=== PATIENT | female | born 1990 | race Caucasian/White ===

== ENCOUNTER → 2018-02-12 13:36 | Outpatient (CLI) | payer OTHER, SELFPAY ==
--- NOTE | 2018-02-12 | DI.US.S_ITS ---
PROCEDURE: US ABDOMEN COMPLETE INDICATIONS: PERIUMBILICAL PAIN TECHNIQUE: Real-time scanning was performed of the abdominal and retroperitoneal organs, with image documentation. COMPARISON: None. FINDINGS: Liver: The liver is normal in size and demonstrates slightly increased echogenicity when compared to the right kidney. No focal liver lesions are evident. Gallbladder: 3 cm mobile gallstone otherwise gallbladder is normal. The surrounding gallbladder wall inflammation is evident. Biliary ducts: Intrahepatic bile ducts are non-dilated. Extrahepatic bile duct caliber measures 2.6 mm. Normal is 6-7 mm or less in diameter, or 10 mm or less post-cholecystectomy. Pancreas: Visualized portions of the pancreas are sonographically normal. Spleen: Spleen is normal in size and homogeneous in echotexture. Kidneys: Kidneys are normal in size and echotexture. Right kidney measures 11.8 cm long; left kidney measures 10 cm long. No hydronephrosis or nephrolithiasis. No solid masses. Aorta: Visualized aorta is normal in caliber at less than 3 cm. Iliacs: Proximal common iliac arteries are normal in caliber at less than 2.5 cm. IVC: Intrahepatic inferior vena cava is patent. Miscellaneous: No free abdominal fluid. IMPRESSION: 1. Cholelithiasis without acute cholecystitis. 2. Possible hepatic steatosis. Please correlate clinically. Dictated by: John ELIAS Interpreted: Gavin Pandey MD on 02/12/2018 at 14:27 Approved by: Gavin Pandey M.D. on 02/12/2018 at 17:24
== END ==
PROVIDERS: Visit Provider Nurse Practitioner Family
DX: K80.20 Calculus of gallbladder without cholecystitis without obstruction (principal); R10.33 Periumbilical pain
CPT/HCPCS: 76700

== ENCOUNTER → 2018-11-28 16:11 | Outpatient (CLI) | payer OTHER, SELFPAY ==
--- NOTE | 2018-11-28 | DI.US.S_ITS ---
PROCEDURE: US OB <= 14 WEEKS FETUS INDICATIONS: SIZE AND DATING OUTSIDE/PRIOR DATING DATA: Last menstrual period (LMP): Unknown. LMP-based estimated date of delivery (LOBITO): Unknown. First dating scan (date and location): 11/28/18. Estimated date of delivery (LOBITO) from first dating scan: 07/07/19. TECHNIQUE: Real-time scanning was performed of the fetus and maternal pelvic organs, with image documentation. Endovaginal scanning was also performed to better visualize the fetus and maternal ovaries. COMPARISON: None. FINDINGS: Embryo: Single living intrauterine fetus is seen with a crown-rump length measuring 1.9 cm, 8 weeks 3 days. heart rate measures 180 beats per minute Measurement variability in dating: +/- 4 weeks by LMP, +/- 7 days by mean sac diameter (use before 6 weeks gestation if crown-rump length not able to be measured), +/- 5 days by crown-rump length (up to 8 weeks 6 days gestation), +/- 7 days by crown-rump length (up to 13 weeks 6 days gestation). Maternal organs: Ovaries unremarkable except for a presumed right sided corpus luteum. Uterus demonstrates a possible septate appearance, with the gestation seen in the right uterus. Limited images through the kidneys demonstrate no hydronephrosis. IMPRESSION: Single living intrauterine fetus with a gestational age measuring 8 weeks and 3 days by today's ultrasound measurements corresponding to an LOBITO of 07/07/19. Dictated by: Marcelo Elias M.D. on 11/28/2018 at 16:50 Approved by: Marcelo Elias M.D. on 11/28/2018 at 16:53
== END ==
PROVIDERS: PCP Nurse Practitioner Family; Visit Provider Nurse Practitioner Family
DX: Z34.91 Encounter for supervision of normal pregnancy, unspecified, first trimester (principal); Z3A.08 8 weeks gestation of pregnancy
CPT/HCPCS: 76801

== ENCOUNTER → 2019-02-12 14:37 | Outpatient (CLI) | payer OTHER, SELFPAY ==
--- NOTE | 2019-02-12 | DI.US.S_ITS ---
PROCEDURE: US OB >= 14 WEEKS FETUS INDICATIONS: 20 WEEK ANATOMY OUTSIDE/PRIOR DATING DATA: Last menstrual period (LMP): Unknown. LMP-based estimated date of delivery (LOBITO): Unknown. First dating scan (date and location): 11/28/18. Estimated date of delivery (LOBITO) from first dating scan: 07/07/19. TECHNIQUE: Real-time scanning was performed of the fetus, with image documentation and biometric measurements. Endovaginal scanning: Not performed COMPARISON: [facility], OB <= 14 WEEKS FETUS, 11/28/2018, 16:22. FINDINGS: General: A single living intrauterine gestation is present. Presentation: Vertex. Placenta: Placental position is posterior, without previa. Amniotic fluid index: 19.1 cm, normal range is 5-24 cm. heart rate: 152 beats per minute. Maternal cervical canal: 3.4 cm long. Normal lower limit is 2.5 cm. biometrics: Biparietal diameter: 4.6 cm, 19 weeks 5 days Head circumference: 17.4 cm, 20 weeks zero days Abdominal circumference: 14.6 cm, 19 weeks 6 days Femur length: 3.1 cm, 19 weeks 3 days Estimated gestational age from initial scan: 19 weeks 2 days Composite gestational age from present scan: 19 weeks 5 days Estimated weight and percentile: 309 g, 71st percentile Measurement variability for biometric dating: +/- 7 days from 14 weeks to 15 weeks 6 days gestation, +/- 10 days from 16 weeks to 21 weeks 6 days gestation, +/- 2 weeks from 22 weeks to 27 weeks 6 days gestation, +/- 3 weeks for 28 weeks gestation or later. weight reference: 4500 g or EFW >90/95% is considered macrosomia or large for gestational age. EFW <10% is small for gestational age. EFW 5% or less is considered intra-uterine growth restriction. Anatomic survey: Neuro: Ventricles are non-dilated at less than 10 mm. Cisterna magna is normal at 3-11 mm. Cerebellum is normal in size and morphology. Nuchal skin fold: Normal at less than 6 mm between 14-21 weeks gestational age. Face: Nose and lips, facial profile are normal. Spine: No evidence for spina bifida. Heart: 4-chambered heart is present, with normal ventricular outflow tracts. Diaphragm: Diaphragm is intact. Stomach: Left-sided stomach is present. Kidneys: No hydronephrosis. Normal is less than 5 mm in 2nd trimester, less than 7 mm in 3rd trimester. Cord: 3-vessel cord has orthotopic insertion. Bladder: Normal in size. Extremities: All 4 extremities identified. IMPRESSION: Single living intrauterine fetus in vertex presentation with a gestational age measuring 19 weeks 5 days by today's ultrasound measurements, demonstrating expected interval growth. Normal anatomic survey. Dictated by: Marcelo Elias M.D. on 02/12/2019 at 17:07 Approved by: Marcelo Elias M.D. on 02/12/2019 at 17:10
== END ==
PROVIDERS: PCP Nurse Practitioner Family; Visit Provider Family Medicine
DX: Z36.89 Encounter for other specified antenatal screening (principal); Z3A.19 19 weeks gestation of pregnancy
CPT/HCPCS: 76811

== ENCOUNTER → 2019-05-24 13:24 | Outpatient (CLI) | payer OTHER, SELFPAY ==
--- NOTE | 2019-05-24 | DI.US.S_ITS ---
PROCEDURE: US OB LIMITED INDICATIONS: SIZE GREATER THAN DATES OUTSIDE/PRIOR DATING DATA: Last menstrual period (LMP): Unknown. LMP-based estimated date of delivery (LOBITO): Not applicable. First dating scan (date and location): 11/28/18. Estimated date of delivery (LOBITO) from first dating scan: 07/07/19. TECHNIQUE: Real-time scanning was performed of the fetus, with image documentation and biometric measurements. Endovaginal scanning: Deferred COMPARISON: None. FINDINGS: General: A single living intrauterine gestation is present. Presentation: Vertex. Placenta: Placental position is posterior, without previa. Amniotic fluid index: 10.4 cm, normal range is 5-24 cm. heart rate: 135 beats per minute. Maternal cervical canal: Approximately 3.5 cm long. Normal lower limit is 2.5 cm. biometrics: Biparietal diameter: 8.7 cm, 35 weeks, 2 days Head circumference: 32.2 cm, 36 weeks, 2 days Abdominal circumference: 31.8 cm, 35 weeks, 5 days Femur length: 6.5 cm, 33 weeks, 4 days Estimated gestational age from initial scan: 33 weeks, 5 days. Composite gestational age from present scan: 35 weeks, 2 days Estimated weight and percentile: 2615 g, 85th percentile Measurement variability for biometric dating: +/- 7 days from 14 weeks to 15 weeks 6 days gestation, +/- 10 days from 16 weeks to 21 weeks 6 days gestation, +/- 2 weeks from 22 weeks to 27 weeks 6 days gestation, +/- 3 weeks for 28 weeks gestation or later. weight reference: 4500 g or EFW >90/95% is considered macrosomia or large for gestational age. EFW <10% is small for gestational age. EFW 5% or less is considered intra-uterine growth restriction. Other: Not applicable. IMPRESSION: 1. Single live intrauterine with a composite gestational age is 11 days ahead of the initially assigned gestational age. This is within normal limits. 2. Normal amniotic fluid volume. Dictated by: Sweta Rodas M.D. on 05/24/2019 at 16:07 Approved by: Sweta Rodas M.D. on 05/24/2019 at 16:12
== END ==
PROVIDERS: PCP Nurse Practitioner Family; Visit Provider Internal Medicine
DX: Z36.88 Encounter for antenatal screening for fetal macrosomia (principal); Z3A.35 35 weeks gestation of pregnancy
CPT/HCPCS: 76815

== ENCOUNTER → 2019-06-05 13:00 | Outpatient (ROUT) | payer OTHER, SELFPAY | PROVIDERS: PCP Nurse Practitioner Family; Visit Provider Family Medicine | DX: Z34.90 Encounter for supervision of normal pregnancy, unspecified, unspecified trimester (principal) | CPT/HCPCS: 87081; 87147 ==

== ENCOUNTER 2019-07-01 10:50 | Outpatient (CLI) | payer OTHER, SELFPAY ==
[2019-07-01 11:35] LABS: Add Manual Diff / Slide Review NO; Basophils Absolute Auto 0 /uL (0-100); Basophils Percent Auto 0.1 % (0-2); Eosinophils Absolute Auto 100 /uL (0-450); Eosinophils Percent Auto 0.6 % (2-4); Hematocrit 38.2 % (36-46); Hemoglobin 13.2 g/dL (12.0-16.0); Lymphocytes Absolute Auto 1400 /uL (1100-4500); Lymphocytes Percent Auto 13.4 % (25-40); Mean Corpuscular HGB Conc 34.6 % (30-36); Mean Corpuscular Hemoglobin 32.4 PG (26-34); Mean Corpuscular Volume 93.5 fL (80-100); Monocytes Absolute Auto 700 /uL (0-900); Monocytes Percent Auto 6.5 % (3-14); Neutrophils Absolute Auto 8200 /uL (1500-7000); Neutrophils Percent Auto 79.4 % (50-75); Platelet Count 189 X10^3/uL (150-400); Red Blood Cell Count 4.09 X10^6/uL (4.0-5.2); Red Cell Distribution Width 13.2 % (11.6-14.8); White Blood Cell Count 10.3 X10^3/uL (4.5-11.0)
[2019-07-01 11:49] LABS: Aspartate Aminotransferase 27 IU/L (14-36); Blood Urea Nitrogen 7 mg/dL (7-17); Estimated Glomerular Filt Rate > 60.0 mL/min (>60); Uric Acid 4.6 mg/dL (2.5-6.2)
[2019-07-01 12:05] LABS: Creatinine Urine Random 43.3 mg/dL; Protein (Total) Urine Random 13 mg/dL (0-12)
== END 2019-07-01 12:15 | disposition home or self-care (01) ==
LOC: LABOR 11:23 → OB 07-03 10:46
PROVIDERS: PCP Nurse Practitioner Family; Visit Provider Family Medicine
DX: Z34.03 Encounter for supervision of normal first pregnancy, third trimester (principal); Z3A.39 39 weeks gestation of pregnancy
CPT/HCPCS: 36415; 59025; 82570; 84156; 84450; 84550; 85025; G0378; G0379

== ENCOUNTER 2019-07-08 07:02 | Inpatient (IN) | payer OTHER, SELFPAY ==
--- NOTE | 2019-07-08 08:24 | PM.OBHP.1 ---
OB HPI Date/Time Date of admission: 07/08/19 Date Patient Seen: 07/08/19 Time Patient Seen: 08:25 History of Present Condition Chief complaint: OBSERVATION : 2 Para: 1 Estimated Date of Delivery: 07/07/19 Estimated Gestational Age (weeks): 40 09/03 Narrative: Genny Torres is a 28 year old female with EDC 07/07/2019 with good dates. Presents for induction. Patient has had progressive weight increase over the last 7-10 days. Slight increase in blood pressure. Normal labs last week. Normal NST last week. Labs for preeclampsia were negative. She has otherwise had an unremarkable and has done well. Estimated weight 9 lb. No other problem or issues. Feeling well. Has had some contractions over the weekend but nothing major. No leaking fluid or bleeding. Previous Ob [id number] week 12 hours labor epidural misery male 8 lb 8 oz Indications Indication for induction OB: maternal discomfort History of Present care: good care Dating criteria: LMP confirmed by 1st trimester US Ultrasounds: normal mid trimester US Obstetrical complications: other Medical complications: none Narrative: Had mild increase in blood pressure Preadmission Labs Blood type: O (+) positive -: Antibody screen: negative, GBS status: positive, HBsAG: negative, HIV: negative, HSV 1: negative, HSV 2: negative and RPR/VDLR: negative -: Chlamydia screen: not detected and Gonorrhea screen: not detected -: Rubella: immune and Varicella: immune HCT: 34.6 HCAB: negative PAP: Normal Sequential screen: Normal 1 hr GTT: 106 Evaluation Evaluation Baseline heart rate: 130 Category of Tracing: I Cervical dilation (cm): 2 Cervical effacement (%): 50 station: -1 [facility] Social History number of children: 1 Smoking Status: Never smoker Meds Home Medications and Allergies Home Medications Medication Instructions Recorded Confirmed Type dicyclomine 10 mg PO QID #56 cap 11/25/17 Rx Allergies Allergy/AdvReac Type Severity Reaction Status Date / Time No Known Allergies Allergy Uncoded 03/01/18 11:02 Review of Systems Review of Systems ROS Unobtainable: All systems reviewed & are unremarkable except as noted in HPI and below Exam Narrative Exam Narrative: Alert female in no acute distress. Lungs are clear. Heart regular rate and rhythm. Abdomen is gravid 39 cm. Extremities without cyanosis clubbing edema. Normal reflexes. Assessment and Plan Assessment and Plan Assessment and Plan narrative: Forty week intrauterine with mild increase in blood pressure here for induction. Overall does not appear to be preeclamptic. GBS positive will start antibiotics begin Pitocin and follow closely. Rupture when able
[2019-07-08 08:45] LABS: Add Manual Diff / Slide Review NO; Basophils Absolute Auto 0 /uL (0-100); Eosinophils Absolute Auto 100 /uL (0-450); Eosinophils Percent Auto 0.7 % (2-4); Hematocrit 38.7 % (36-46); Hemoglobin 13.6 g/dL (12.0-16.0); Lymphocytes Absolute Auto 1200 /uL (1100-4500); Lymphocytes Percent Auto 12.1 % (25-40); Mean Corpuscular HGB Conc 35.1 % (30-36); Mean Corpuscular Hemoglobin 32.3 PG (26-34); Monocytes Absolute Auto 600 /uL (0-900); Monocytes Percent Auto 5.7 % (3-14); Neutrophils Absolute Auto 8000 /uL (1500-7000); Neutrophils Percent Auto 81.5 % (50-75); Platelet Count 187 X10^3/uL (150-400); Red Blood Cell Count 4.21 X10^6/uL (4.0-5.2); Red Cell Distribution Width 12.9 % (11.6-14.8); White Blood Cell Count 9.8 X10^3/uL (4.5-11.0)
[2019-07-08] MEDS: PENICILLIN G POTASSIUM 5,000,000 UNIT in DEXTROSE 5% IN WATER 250 ML IV (09:04)
[2019-07-08] MEDS: LACTATED RINGERS 1,000 ML 100 ML IV ×2 (09:04→12:39)
[2019-07-08] MEDS: OXYTOCIN PREMIX 30 UNIT/500 ML PLAST..BAG IV (09:05)
--- NOTE | 2019-07-08 11:21 | PM.OBPNLAB ---
Date/Time Date Patient Seen: 07/08/19 Time Patient Seen: 11:21 Pain Control Pain control: tolerating well Comments: Patient Pelvic Exam Dilation (cm): 2 Effacement (%): 80 station: -1 Amniotic membrane status: Ruptured Comments: A rum with clear fluid Contractions Pitocin rate (mU/min): 6 Contraction frequency (min): 3 Contraction pattern: Regular Contraction intensity: Moderate Status status: Category l Assessment and Plan Assessment: induction ongoing Plan: continuous present management Comments: Ruptured with clear fluid. Will re-evaluate in 2 hours
[2019-07-08] MEDS: FENT 2MCG/ML BUPIV 0.125% EPI 200 MCG/100 ML PLAST..BAG 13.5 MCG EPIDURAL (13:00)
[2019-07-08] MEDS: PENICILLIN G POTASSIUM 3,000,000 UNIT/50 ML FROZ.PIGGY 100 UNIT IV (13:33)
--- NOTE | 2019-07-08 15:45 | PM.OBPRVD ---
Labor & Delivery Delivery date: 07/08/19 Intrapartal events: None Cervical ripening method: none Induction method: per pitocin protocol Delivery augmentation: rupture of membranes Delivery monitor: external FHT Route of delivery: L&D Laceration Description: Periurethral - 2nd Degree and Vaginal - 2nd Degree Delivery repair: chromic Estimated blood loss (mL): 300 Anesthesia type: Epidural Complications: None Narrative: Patient was brought into the delivery unit today for induction for a mild elevation in blood pressure and 6 lb weight gain. Concern for preeclampsia early. Labs were normal. heart monitor was without abnormalities throughout the entire for stage. Pitocin was started. Never got above 6. After 3 hours should send out quite a bit and AROM was entertained with clear fluid. Total length of rupture was approximately 3 hours she was GBS positive and antibiotics were started along with the Pitocin. Rupture was 3 hours after 1st dose. Approximately. No other significant changes. She finished the 1st stage without abnormalities. She had excellent epidural with no pain whatsoever. Second-stage began about a half an hour after she was complete. Five pushes were undertaken with head which was difficult for her to push out baby's head was then delivered with no nuchal cord. Shoulder was clearly impacted. Nurse was passed do suprapubic pressure and then push and with my pull baby shoulder came after about 30 seconds only. No further requirement was done. It is incredibly tight fit all the way through with a difficult time delivering trunk. Baby was then delivered up on the abdomen and no resuscitation was required. Baby after brief period time of stent appearance was then crying without problems. Placenta delivered spontaneous intact no complications. Three vessels. Evaluation of mom's perineum showed a right labial periurethral tear second-degree which was repaired with running 300 chromic. Patient had a second-degree midline tear which was repaired in the usual manner with 3 0 chromic. Running. No complications with that. Mom had minimal bleeding. Three hundred cc EBL. Mother and infant were in stable condition. Plan for aftercare: Status post doing well. Routine orders.
[2019-07-08] MEDS: DERMOPLAST SPRAY 20% 60 ML 1 SPRAY TOP (17:49)
[2019-07-08] MEDS: IBUPROFEN 600 MG TABLET PO (17:49)
[2019-07-08] MEDS: fentaNYL 100 MCG/2 ML INJ (21:30)
[2019-07-08] MEDS: LACTATED RINGERS 1,000 ML 500 ML IV (22:53)
[2019-07-09] MEDS: IBUPROFEN 600 MG TABLET PO ×2 (01:03→08:05)
[2019-07-09 06:15] LABS: Hematocrit 30.1 % (36-46); Hemoglobin 10.5 g/dL (12.0-16.0)
[2019-07-09] MEDS: PRENATAL VIT,CALC/IRON/FOLIC 1 TABLET 1 TAB PO (08:05)
--- NOTE | 2019-07-09 13:29 | P.DS_ITS ---
History of Present Illness History of Present Illness Date Patient Seen: 07/09/19 Time Patient Seen: 13:30 Chief complaint: OBSERVATION Narrative: See H&P Discharge Providers Provider Date of admission: 07/08/19 07:02 Discharge Date: 07/09/19 Consults: 07/09/19 15:52 Consult to Supervisor Modern Languages Routine Comment: Discharge provider: Galdino Zhong MD Summary Hospital Course Discharge Diagnosis: Forty week intrauterine delivered Hospital Course: Patient was brought in for induction please see history and physical and delivery summary. Child was delivered without complications mother did well. Minimal bleeding. Was transferred to recovery and then rooms. Did well. Did have some dizziness and had a blood patch done. Otherwise is feeling well. Was having persistent left ear pain and valuation showed some mild erythema. Therefore she was started on Ceftin. Otherwise breast-feeding was going well. Breasts were doing well. She had minimal lochia and was feeling great. Wanted to go home. Was tolerating p.o. and otherwise doing well Status at Discharge Cognitive/behavioral status at discharge: oriented Functional status at discharge: independent ambulation Overall status at discharge: patient is progressing back to baseline Time Spent with Patient Time spent: Greater than 30 minutes Objective Labs Result Diagrams: 07/09/19 05:55 Labs: Laboratory Results - last 24 hr 07/09/19 05:55 Hgb 10.5 L Hct 30.1 L Discharge Plan Discharge Plan Patient Disposition: Home Discharge Med Rec/Prescriptions Prescriptions: New acetaminophen 325 mg Tablet 650 mg PO Q6HR PRN (Reason: Pain, Mild (1-3)) Qty: 30 RF: 0 cefuroxime axetil 250 mg Tablet 500 mg PO BID Qty: 20 RF: 0 ibuprofen 600 mg Tablet 600 mg PO Q6HR PRN (Reason: Pain, Mild (1-3)) 90 Days Qty: 90 RF: 0 Efz-D-Doevma Cream 1 applic topical PRN PRN (Reason: Tenderness) Qty: 60 RF: 0 Prenatabs Rx 29 mg iron- 1 mg Tablet 1 tab PO DAILY Qty: 30 RF: 0 No Action No Known Home Medications RF: 0 Follow up/Referrals: Galdino Zhong MD [Physician] - 6 Weeks (please follow up w/ Dr. Zhong on Monday, Aug 19 @ 11:15am) Provider Discharge Instructions Diet: Diet as Tolerated Activity: as tolerated but get appropriate rest during the day. Skin/Wound/Dressing Care Report to your healthcare provider any signs of infection, such as:: chills, fever, night sweats and increased pain Visit Report/Discharge Packet Stand Alone Forms: Discharge: Care
== END 2019-07-09 14:00 | disposition home or self-care (01) | DRG 807 ==
LOC: LABOR 08:15
PROVIDERS: Admitting Provider Family Medicine; Visit Provider Family Medicine
DX: O99.824 Streptococcus B carrier state complicating childbirth (principal); Z37.0 Single live birth; Z3A.40 40 weeks gestation of pregnancy; O70.1 Second degree perineal laceration during delivery; O71.82 Other specified trauma to perineum and vulva
CPT/HCPCS: 01967; 36415; 59050; 85014; 85018; 85025; 86850; 86900; 86901; J2540; J2590; J3010

== ENCOUNTER → 2021-03-03 15:31 | Outpatient (CLI) | payer OTHER, SELFPAY ==
--- NOTE | 2021-03-03 15:32 | DI.MRI.S_ITS ---
PROCEDURE: MR BRAIN (IAC) WWO CON INDICATIONS: Labyrinthitis, bilateral TECHNIQUE: Noncontrast sagittal T1 spin echo, axial FLAIR, axial gradient echo, axial diffusion and ADC through the brain. Axial thin-slice 3D CISS, coronal TruFISP, axial T1 spin echo with fat saturation through the internal auditory canals. After the administration of contrast, thin slice axial and coronal T1 spin echo with fat saturation through the internal auditory canals, and axial T1 spin echo with fat saturation through the brain. COMPARISON: None. FINDINGS: Image quality: Excellent. Renal nerves: No cerebellopontine angle masses. Visualized cranial nerves demonstrate no areas of abnormal signal, mass lesion or enhancement. CSF spaces: Ventricles are normal in size and shape. No extra-axial fluid collections. Basal cisterns are patent. Brain: No intracranial bleeds or mass effects. Barnes-white matter interface is intact. No abnormal intracranial enhancement. Diffusion weighted images demonstrate no acute ischemic insults. Brainstem appears normal. Normal intravascular flow voids are present. Skull and face: Calvarial marrow signal is normal. Orbits appear normal. Sinuses: Sinuses and mastoids are clear. IMPRESSION: 1. No acute intracranial process. 2. Visualized cranial nerves and cerebellopontine angles demonstrate no areas of abnormal signal, mass lesion or enhancement. Dictated by: Ghazala Olmstead M.D. on 03/03/2021 at 16:49 Approved by: Ghazala Olmstead M.D. on 03/03/2021 at 16:51
== END ==
PROVIDERS: PCP Family Medicine; Referring Provider Family Medicine; Visit Provider Family Medicine
DX: H83.03 Labyrinthitis, bilateral (principal)
CPT/HCPCS: 70553; A9579

== ENCOUNTER → 2024-01-26 08:52 | Outpatient (CLI) | payer OTHER, SELFPAY ==
--- NOTE | 2024-01-26 08:55 | DI.US.S_ITS ---
PROCEDURE: US OB <= 14 WEEKS FETUS INDICATIONS: Amenorrhea OUTSIDE/PRIOR DATING DATA: Last menstrual period (LMP): 12/05/2023. LMP-based estimated date of delivery (LOBITO): 09/10/2024. First dating scan (date and location): 01/26/2024 Estimated date of delivery (LOBITO) from first dating scan: 09/11/2024 TECHNIQUE: Real-time scanning was performed of the fetus and maternal pelvic organs, with image documentation. Endovaginal scanning was also performed to better visualize the fetus and maternal ovaries. COMPARISON: [facility], , OB <= 14 WEEKS FETUS, 11/28/2018, 16:22. FINDINGS: Embryo: [place]-rump length 1.1 cm corresponds with a 7 week 1 day gestation Heart rate: 143 beats per minute Maternal organs: Unremarkable IMPRESSION: Single live intrauterine corresponds with a 7 week 1 day gestation Approved by: John Christie M.D. on 01/26/2024 at 16:02
== END ==
PROVIDERS: PCP Family Medicine; Referring Provider Family Medicine; Visit Provider Family Medicine
DX: Z34.91 Encounter for supervision of normal pregnancy, unspecified, first trimester (principal); Z3A.01 Less than 8 weeks gestation of pregnancy
CPT/HCPCS: 76801

== ENCOUNTER → 2025-01-14 15:09 | Outpatient (CLI) | payer OTHER, SELFPAY ==
[2025-01-14 18:35] LABS: Urine N gonorrhoeae NOT DETECTED
[2025-01-14 19:19] LABS: Urine Chlamydia NOT DETECTED
== END ==
LOC: LAB 15:10
PROVIDERS: PCP Family Medicine; Visit Provider Student in an Organized Health Care Education/Training Program
DX: Z34.01 Encounter for supervision of normal first pregnancy, first trimester (principal); Z3A.09 9 weeks gestation of pregnancy
CPT/HCPCS: 87491; 87591

== ENCOUNTER → 2025-01-17 10:08 | Outpatient (CLI) | payer OTHER, SELFPAY ==
[2025-01-17 10:31] LABS: Add Manual Diff / Slide Review NO; Basophils Absolute Auto 0 /uL (0-100); Basophils Percent Auto 0.4 % (0-2); Eosinophils Absolute Auto 0 /uL (0-450); Eosinophils Percent Auto 0.6 % (2-4); Hematocrit 39.3 % (36-46); Hemoglobin 13.5 g/dL (12.0-16.0); Lymphocytes Absolute Auto 900 /uL (1100-4500); Lymphocytes Percent Auto 11.8 % (25-40); Mean Corpuscular HGB Conc 34.3 % (30-36); Mean Corpuscular Hemoglobin 30.9 PG (26-34); Mean Corpuscular Volume 89.9 fL (80-100); Monocytes Absolute Auto 400 /uL (0-900); Monocytes Percent Auto 4.9 % (3-14); Neutrophils Absolute Auto 6200 /uL (1500-7000); Neutrophils Percent Auto 82.3 % (50-75); Platelet Count 224 X10^3/uL (150-400); Red Blood Cell Count 4.38 X10^6/uL (4.0-5.2); Red Cell Distribution Width 12.4 % (11.6-14.8); White Blood Cell Count 7.5 X10^3/uL (4.5-11.0)
[2025-01-17 11:12] LABS: Natera Collection Specimen Collected
[2025-01-17 11:34] LABS: Hepatitis B Surface Antigen NEGATIVE s/c (NEGATIVE); Rubella Antibody IgG 58.5 IU/mL (>15)
[2025-01-17 12:18] LABS: Hep C Virus Ab w/Reflex Quant NEGATIVE s/c (NEGATIVE)
[2025-01-17 12:19] LABS: HIV 1 & 2 Ab/Ag 4th Gen Combo NEGATIVE (NEGATIVE)
[2025-01-18 04:40] LABS: Varicella IgG Antibody Reactive (Non Reactive)
[2025-01-18 05:36] LABS: RPR Screen Non Reactive (Non Reactive)
== END ==
PROVIDERS: PCP Family Medicine; Referring Provider Student in an Organized Health Care Education/Training Program; Visit Provider Student in an Organized Health Care Education/Training Program
DX: O09.521 Supervision of elderly multigravida, first trimester (principal); Z3A.10 10 weeks gestation of pregnancy
CPT/HCPCS: 36415; 80055; 86787; 86803; 86850; 86900; 86901; 87389

== ENCOUNTER 2025-04-01 08:29 | Outpatient (CLI) | payer OTHER, SELFPAY ==
[2025-04-01 09:04] LABS: Appearance Urine UA CLOUDY; Bilirubin Urine UA NEGATIVE (NEGATIVE); Color Urine UA YELLOW; Glucose Urine UA NEGATIVE (Negative); Ketones Urine UA TRACE (NEGATIVE); Leukocyte Esterase Urine UA 1+ (NEGATIVE); Nitrite Urine UA NEGATIVE (Negative); Occult Blood Urine UA NEGATIVE (Negative); Protein Urine UA TRACE (Negative); Specific Gravity Urine UA 1.015 (1.000-1.035); Urobilinogen Urine UA 0.2 E.U./dL (0.2)
[2025-04-01 09:16] LABS: pH Urine UA 6.0 (4.5-8.0)
[2025-04-01 09:22] LABS: Culture Indicated Urine Specimen Cultured
--- NOTE | 2025-04-01 10:35 | PM.OBTRLD ---
Visit Information Visit Information Date of evaluation: 04/01/25 Primary OB Provider: Keri Andrew Comments/Additional reasons for admission: Patient presented with cramping and headache since last night. Vital Signs Vital Signs: vitals reviewed in OBIX, within normal parameters [facility] Medical History (Updated 04/01/25 @ 10:44 by Keri Andrew DO) Spinal headache Anoxic brain injury (~1992) Vertigo (~2020) Encounter for consultation for female sterilization Cholelithiasis Surgical History (Updated 12/31/24 @ 15:41 by Karo Beaver RN) [place] teeth extracted Status post excision of lipoma (~11/2024) History of removal of skin mole Anesthesia History of colonoscopy Family History (Updated 12/31/24 @ 15:43 by Karo Beaver RN) Father Gallstones Grandmother Diabetes mellitus Hypertension Sister Stroke Mother Hypothyroidism Rheumatoid arthritis Hypertension Melanoma Grandmother Hypothyroidism Social History number of children: 2 household members: children lives independently: Yes caregiver/support person: Yes housing: condominium pets and animals: Yes (cat) education level: high school occupational status: employed current occupational exposures/hazards: Yes (metal shavings, fumes, exhaust from welding shop) special jamie needs: No travel history: over 6 months ago seatbelt use: always helmet use: No water heater temp set < 120 deg: Yes working smoke detector in home: Yes fire extinguisher in home: Yes carbon monox detector in home: Yes firearms in home: No do you feel safe at home: Yes second hand exposure: Yes (s/o smokes MJ) alcohol intake: former (~2/day when not ) substance use type: marijuana (counseled not to use while /) during the past year weight has: remained stable well-balanced diet: rarely or never daily servings fruits/ve-1 caffeine: Yes (Counseled on 200mg limit) Type(s) of exercise: walking, bicycling and weight lifting Objective Labs Labs: Laboratory Results - last 24 hr 04/01/25 08:40 Urine Color Yellow Urine Appearance Cloudy Urine pH 6.0 Ur Specific [place] 1.015 Urine Protein Trace H Urine Glucose (UA) Negative Urine Ketones Trace H Urine Occult Blood Negative Urine Nitrate Negative Urine Bilirubin Negative Urine Urobilinogen 0.2 Ur Leukocyte Esterase 1+ H Urine RBC None seen Urine WBC 5-10/hpf H Ur Squamous Epith Cells 10-30 /hpf H Amorphous Sediment 2+ Urine Bacteria Many (>30) H Ur Culture Indicated? Specimen cultured Vol Urine Centrifuged 10ml (spun) Diagnosis, Plan/Disposition Final Diagnosis (1) Cramping affecting , antepartum: Status: Acute (2) Headache in , antepartum: Status: Acute (3) 20 weeks gestation of : Status: Acute Plan/Disposition Plan: 34yo at 20+4wks evaluated in triage for headache and cramping. UA suspicious for UTI, thus will empirically treat with macrobid. Headache improved prior to discharge. -d/c home with follow-up in clinic on Monday OB Disposition: home
== END 2025-04-01 10:28 | disposition home or self-care (01) ==
LOC: LABOR 10:20 → OB 04-03 09:28
PROVIDERS: PCP Family Medicine; Referring Provider Student in an Organized Health Care Education/Training Program; Visit Provider Student in an Organized Health Care Education/Training Program
DX: O26.892 Other specified pregnancy related conditions, second trimester (principal); R10.9 Unspecified abdominal pain; R51.9 Headache, unspecified; Z3A.20 20 weeks gestation of pregnancy
CPT/HCPCS: 81001; 87077; 87086; G0378; G0379

== ENCOUNTER → 2025-04-04 12:49 | Outpatient (CLI) | payer OTHER, SELFPAY ==
--- NOTE | 2025-04-04 12:50 | DI.US.S_ITS ---
PROCEDURE: US OB >= 14 WEEKS FETUS INDICATIONS: 20 week anatomy scan OUTSIDE/PRIOR DATING DATA: Last menstrual period (LMP): November 08, 2024. LMP-based estimated date of delivery (LOBITO): August 15, 2025. TECHNIQUE: Real-time scanning was performed of the fetus, with image documentation and biometric measurements. Endovaginal scanning: Not performed COMPARISON: None. FINDINGS: General: A single living intrauterine gestation is present. Presentation: Cephalic. Placenta: Placental position is posterior , without previa. Amniotic fluid index: 14.5 cm, normal range is 5-24 cm. Single deepest vertical pocket is 4.1 cm. heart rate: 141 beats per minute. Maternal cervical canal: 3.9 cm long. Normal lower limit is 2.5 cm. biometrics: Biparietal diameter: 4.9 cm, 20 weeks and 5 days Head circumference: 18.9 cm, 21 weeks and 1 day Abdominal circumference: 15.9 cm, 21 weeks and 0 days Femur length: 3.6 cm, 21 weeks and 2 days Clinically estimated gestational age: 21 weeks and 0 days Composite gestational age from present scan: 21 weeks and 0 days Estimated weight and percentile: 404 g which correlates with the 54th percentile for gestational age Anatomic survey: Neuro: Ventricles are non-dilated at less than 10 mm. Cisterna magna is normal at 3-11 mm. Cerebellum is normal in size and morphology. Nuchal skin fold: Normal at less than 6 mm between 14-21 weeks gestational age. Face: Nose and lips, facial profile are normal. Spine: No evidence for spina bifida. Heart: 4-chambered heart is present, with normal ventricular outflow tracts. Diaphragm: Diaphragm is intact. Stomach: Left-sided stomach is present. Kidneys: No hydronephrosis. Normal is less than 5 mm in 2nd trimester, less than 7 mm in 3rd trimester. Cord: 3-vessel cord has orthotopic insertion. Bladder: Normal in size. Extremities: All 4 extremities identified. IMPRESSION: Single living intrauterine gestation with estimated sonographic gestational age of approximately 21 weeks and 0 days. Estimated weight of approximately 404 g which correlates with the 54th percentile for gestational age. Normal routine second-trimester anatomy screening survey. We strive to produce accurate, complete, and clear reports of imaging services. To assist us in improving patient care, this report was composed using standard report templates and voice recognition software. Therefore, it may contain abnormal punctuation, insertions and/or omissions. Occasional wrong-word or sound-alike substitutions may occur. Though we review the report and make efforts to correct it, we do recommend that the report be read carefully in proper context to recognize any text inaccuracies. Dictated by: Faheem Combs M.D. on 04/04/2025 at 15:04 Approved by: Faheem Combs M.D. on 04/04/2025 at 15:06
== END ==
LOC: US 12:50
PROVIDERS: PCP Family Medicine; Referring Provider Obstetrics & Gynecology; Visit Provider Obstetrics & Gynecology
DX: Z34.92 Encounter for supervision of normal pregnancy, unspecified, second trimester (principal); Z3A.21 21 weeks gestation of pregnancy
CPT/HCPCS: 76811

== ENCOUNTER → 2025-06-30 15:16 | Outpatient (CLI) | payer OTHER, SELFPAY ==
--- NOTE | 2025-06-30 15:18 | DI.US.S_ITS ---
PROCEDURE: US OB FOLLOW UP INDICATIONS: Size greater than dates OUTSIDE/PRIOR DATING DATA: Last menstrual period (LMP): November 08, 2024. LMP-based estimated date of delivery (LOBITO): August 15, 2025. The calculations are made using the LMP LOBITO of August 15, 2025. TECHNIQUE: Real-time scanning was performed of the fetus, with image documentation and biometric measurements. Endovaginal scanning: Not performed COMPARISON: None. FINDINGS: General: A single living intrauterine gestation is present. Presentation: Vertex. Placenta: Placental position is posterior , without previa. Amniotic fluid index: 9.8 cm, normal range is 5-24 cm. Single deepest vertical pocket is 4.7 cm. heart rate: 144 beats per minute. Maternal cervical canal: 3.9 cm long. Normal lower limit is 2.5 cm. biometrics: Biparietal diameter: 7.9 cm, 31 weeks and 6 days Head circumference: 29.8 cm, 33 weeks and 0 days Abdominal circumference: 30.4 cm, 34 weeks and 3 days Femur length: 6.1 cm, 31 weeks and 4 days Clinically estimated gestational age: 33 weeks and 3 days Composite gestational age from present scan: 32 weeks and 5 days Estimated weight and percentile: 2147 g which correlates with the 35th percentile for gestational age. Other: Not applicable. IMPRESSION: Single living intrauterine gestation with estimated sonographic gestational age of approximately 32 weeks and 5 days versus approximately 33 weeks and 3 days by last menstrual period. Estimated weight of approximately 2147 g which correlates with the 35th percentile for gestational age. We strive to produce accurate, complete, and clear reports of imaging services. To assist us in improving patient care, this report was composed using standard report templates and voice recognition software. Therefore, it may contain abnormal punctuation, insertions and/or omissions. Occasional wrong-word or sound-alike substitutions may occur. Though we review the report and make efforts to correct it, we do recommend that the report be read carefully in proper context to recognize any text inaccuracies. Dictated by: Faheem Combs M.D. on 07/01/2025 at 10:50 Approved by: Faheem Combs M.D. on 07/01/2025 at 10:54
== END ==
LOC: US 15:17
PROVIDERS: PCP Family Medicine; Referring Provider Obstetrics & Gynecology; Visit Provider Obstetrics & Gynecology
DX: O09.293 Supervision of pregnancy with other poor reproductive or obstetric history, third trimester (principal); O26.843 Uterine size-date discrepancy, third trimester; Z3A.32 32 weeks gestation of pregnancy
CPT/HCPCS: 76816

== ENCOUNTER → 2025-07-18 10:13 | Outpatient (CLI) | payer OTHER, SELFPAY ==
[2025-07-20 14:11] LABS: Strep Grp B PCR POS for Grp B Strep
== END ==
PROVIDERS: PCP Family Medicine; Visit Provider Obstetrics & Gynecology
DX: Z34.83 Encounter for supervision of other normal pregnancy, third trimester (principal)
CPT/HCPCS: 87653